=== PATIENT | male | born 1970 | race Caucasian/White ===

== ENCOUNTER 2020-04-02 12:50 | Inpatient (IN) | payer OTHER ==
[2020-04-02] VITALS (11 sets, daily range): BP systolic 119–155; BP diastolic 70–100
[~2020-04-02] VITALS: Ht 185.4 cm; Wt 75.7 kg
--- NOTE | ~2020-04-02 | CON ---
[address] [address] CONSULTATION Name: RITU BARNES Room: [address] IN M.R.#: [id number] Admission: 04/02/20 Attend Phys: Hima Barrett Discharge: Date of : 70 Report #: [id number] THIS REPORT FOR: //name// cc: CELESTE Paulino family physician/PCP CELESTE - Lora family physician/PCP ~ THIS REPORT FOR: //name// CC: CELESTE physician/PCP Nash Rai DO DATE OF SERVICE: 04/03/2020 REASONS FOR CONSULTATION: Hematemesis and melena. REQUESTING PHYSICIAN: Nash Rai DO HISTORY OF PRESENT ILLNESS: This is a 49-year-old male with no significant previous gastrointestinal issues, who presents with hematemesis. The patient reports that for the past day prior to admission, he had dark stool, which was loose. He was in the middle of conference call on the day of admission when he got sick to his stomach and he ran to the bathroom. He vomited blood. This concerned him, so he presented to emergency room. He was admitted for upper gastrointestinal bleed and was placed on Protonix drip. He denies any dysphagia, odynophagia, or gastroesophageal reflux disease. PAST MEDICAL HISTORY: Essentially unremarkable. ALLERGIES: No known drug allergy. MEDICATIONS: Please refer to MAR. SOCIAL HISTORY: The patient is and lives at home. He is employed. He admits to drinking alcohol. FAMILY HISTORY: Significant for colon polyps in the father; otherwise, unremarkable. PHYSICAL EXAMINATION: VITAL SIGNS: Reveal blood pressure 125/91, respirations 15, pulse 80, and temperature 37.1. LUNGS: Clear. CARDIOVASCULAR: Regular. ABDOMEN: Soft, nontender, nondistended. Bowel sounds are positive. LABORATORY DATA: Labs reveal WBC of 6.8, hemoglobin 9.1, platelet is 218; [place] [address] CONSULTATION Name: RITU BARNES Room: [address] IN [facility]#: [id number] Admission: 04/02/20 Attend Phys: Hima Barrett Discharge: Date of : 70 Report #: [id number] sodium is 142, potassium 3.6, BUN is 22, creatinine 0.8, total bilirubin is 1.2 with AST of 30, ALT 39, alkaline phosphatase 32, total protein is 6.2; lipase is 264; INR is within normal limit. COVID test was performed and is undetected. IMAGING: CT of abdomen and pelvis was obtained. This was essentially negative except severe hepatic steatosis and diverticulosis of sigmoid colon. ASSESSMENT AND PLAN: We will consider upper endoscopy to further evaluate the patient's melanotic stools and upper gastrointestinal bleed. We will continue Protonix drip until upper scope is completed. He may also need colonoscopy as he is 49 and has never had done one and his hemoglobin is 9. We will make further recommendation after his upper scope is completed. By: [id number] Weinberg MD /nt
[2020-04-02 13:25] LABS: ABSOLUTE BASOPHILS 0.1 thou/uL (0.0-0.2); ABSOLUTE LYMPHOCYTES 1.3 thou/uL (0.8-5.3); ABSOLUTE MONOCYTES 0.5 thou/uL (0.0-1.2); ABSOLUTE NEUTROPHILS 10.1 thou/uL (1.6-8.1); BASOPHILS 0.6 %; EOSINOPHILS 0.2 %; HEMATOCRIT 36.2 % (42.0-52.0); HEMOGLOBIN 12.5 gm/dL (14.0-18.0); LYMPHOCYTES 10.5 %; MCH 33.6 pg (26.0-34.0); MCHC 34.6 g/dL (28.0-37.0); MCV 97.2 fL (80.0-100.0); MONOCYTES 4.1 %; MPV 8.6 fl. (7.2-11.1); NUCLEATED RBCS 0 /100WBC; PLATELET COUNT* 354 thou/uL (150-400); POLYS 84.6 %; RBC 3.73 mil/uL (4.50-6.00); RDW-CV 13.7 % (10.5-14.5)
[2020-04-02 13:34] LABS: CALCIUM 8.9 mg/dL (8.5-10.1); POTASSIUM 4.2 mmol/L (3.5-5.1)
[2020-04-02 13:35] LABS: APTT 22.2 Seconds (25.0-31.3); PROTIME 10.4 Seconds (9.20-11.50)
[2020-04-02 13:39] LABS: ALBUMIN 4.6 g/dL (3.4-5.0); TOTAL BILIRUBIN 1.7 mg/dL (<0.1-1.0); TOTAL PROTEIN 7.9 g/dL (6.4-8.2)
[2020-04-02 14:23] LABS: URINE BLOOD NEGATIVE (Negative); URINE CLARITY CLEAR; URINE COLOR YELLOW; URINE GLUCOSE-RANDOM NEGATIVE (Negative); URINE KETONES 2+ (Negative); URINE LEUKOCYTES-REFLEX NEGATIVE (Negative); URINE NITRITE-REFLEX NEGATIVE (Negative); URINE PROTEIN TRACE (Negative); URINE SPECIFIC GRAVITY 1.015 (1.005-1.030); URINE UROBILINOGEN 0.2 E.U./dl (0.2-1.0)
[2020-04-02 14:28] LABS: URINE BILIRUBIN 1+ (Negative)
[2020-04-02 14:30] LABS: ICTOTEST (BILI CONFIRMATORY) Positive (Negative)
--- NOTE | 2020-04-02 17:29 | EKG ---
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1970 Requested By: Tylor Gonzalez Order Number: [id number] MD: Akshat Silverio Measurements Intervals [place] Rate: 103 P: 69 AR: 145 QRS: 42 QRSD: 89 T: 185 QT: 328 QTc: 430 Interpretive Statements Sinus tachycardia Probable LVH with secondary repol abnrm No previous ECG available for comparison Electronically Signed On 04-02-2020 17:28:41 CDT by Akshat Silverio [email or web address] <ELECTRONICALLY SIGNED> By: Akshat Silverio MD, [facility] 04/02/20 1728 1319 1319 Akshat Silverio MD, [facility] /EPI
[2020-04-02 17:37] LABS: HEMOGLOBIN 10.1 gm/dL (14.0-18.0)
[2020-04-03] VITALS (12 sets, daily range): BP systolic 119–140; BP diastolic 80–95
[2020-04-03 01:10] LABS: ABSOLUTE LYMPHOCYTES 1.9 thou/uL (0.8-5.3); ABSOLUTE MONOCYTES 0.6 thou/uL (0.0-1.2); ABSOLUTE NEUTROPHILS 4.3 thou/uL (1.6-8.1); BASOPHILS 0.4 %; EOSINOPHILS 0.3 %; HEMATOCRIT 26.2 % (42.0-52.0); HEMOGLOBIN 9.1 gm/dL (14.0-18.0); LYMPHOCYTES 27.3 %; MCH 33.6 pg (26.0-34.0); MCHC 34.8 g/dL (28.0-37.0); MCV 96.6 fL (80.0-100.0); MPV 8.4 fl. (7.2-11.1); NUCLEATED RBCS 0 /100WBC; RBC 2.72 mil/uL (4.50-6.00); RDW-CV 13.8 % (10.5-14.5); WBC 6.8 thou/uL (4.0-11.0)
[2020-04-03 01:13] LABS: PLATELET COUNT* 218 thou/uL (150-400)
[2020-04-03 05:07] LABS: GLYCOHEMOGLOBIN (HGB A1C) 4.9 % (4.8-5.6)
[2020-04-03 06:03] LABS: HEMOGLOBIN 9.1 gm/dL (14.0-18.0)
[2020-04-03 06:25] LABS: ALBUMIN 3.6 g/dL (3.4-5.0); CALCIUM 8.1 mg/dL (8.5-10.1); CREATININE 0.8 mg/dL (0.6-1.3); POTASSIUM 3.6 mmol/L (3.5-5.1); TOTAL BILIRUBIN 1.2 mg/dL (<0.1-1.0); TOTAL PROTEIN 6.2 g/dL (6.4-8.2)
--- NOTE | 2020-04-03 08:46 | NUR ---
PT A&O x4, VSS. PROTONIX AT 8 MG/HR. UP AD JOSE. REPORT GIVEN TO EVAN NYM/S
[2020-04-03 13:04] LABS: HEMOGLOBIN 8.6 gm/dL (14.0-18.0)
--- NOTE | 2020-04-03 17:09 | NUR ---
PATIENT TRANSFERRED UP FROM ICU THIS AM. REPORT RECEIVED FROM EVAN FLORES. PATIENT NPO AND HAD EGD THIS AM WITH DR. LAW. PATIENT RETURNED TO FLOOR EARLY AFTERNOON. NO COMPLAINTS OF PAIN. IVF AND IV PROTONIX INFUSING ORDERED. FULL LIQUID DIET ORDERED AND PATIENT TOLERATING. AM CBC ORDER, POSSIBLE DISCHARGE TOMORROW.
[2020-04-03 18:08] LABS: HEMATOCRIT 25.4 % (42.0-52.0); HEMOGLOBIN 8.8 gm/dL (14.0-18.0)
[2020-04-04 04:51] LABS: ABSOLUTE EOSINOPHILS 0.1 thou/uL (0.0-0.7); ABSOLUTE LYMPHOCYTES 1.9 thou/uL (0.8-5.3); ABSOLUTE MONOCYTES 0.4 thou/uL (0.0-1.2); ABSOLUTE NEUTROPHILS 2.1 thou/uL (1.6-8.1); BASOPHILS 0.9 %; EOSINOPHILS 2.6 %; HEMATOCRIT 24.1 % (42.0-52.0); HEMOGLOBIN 8.4 gm/dL (14.0-18.0); LYMPHOCYTES 42.1 %; MCH 33.8 pg (26.0-34.0); MCHC 34.8 g/dL (28.0-37.0); MCV 97.2 fL (80.0-100.0); MONOCYTES 7.9 %; MPV 8.7 fl. (7.2-11.1); NUCLEATED RBCS 0 /100WBC; PLATELET COUNT* 188 thou/uL (150-400); POLYS 46.5 %; RBC 2.48 mil/uL (4.50-6.00); RDW-CV 13.7 % (10.5-14.5); WBC 4.5 thou/uL (4.0-11.0)
[2020-04-04 05:10] LABS: ALBUMIN 3.1 g/dL (3.4-5.0); CALCIUM 8.5 mg/dL (8.5-10.1); CREATININE 0.8 mg/dL (0.6-1.3); POTASSIUM 3.8 mmol/L (3.5-5.1); TOTAL BILIRUBIN 0.9 mg/dL (<0.1-1.0); TOTAL PROTEIN 5.4 g/dL (6.4-8.2)
--- NOTE | 2020-04-04 05:52 | NUR ---
PATIENT HAS SLEPT WELL THROUGHOUT THE NIGHT. VSS ON RA. MEDICATIONS GIVEN ORDERED AND CHARTED. NO C/O PAIN. PATIENT DID HAVE BOWEL MOVEMENT AND REPORTED THAT THERE WAS NO BLOOD IN HIS STOOL. PATIENT REMAINS ON FULL LIQUID DIET AND TOLERATING WELL. IV IN RIGHT FOREARM- PROTONIX INFUSING @ 20ML/HR. PATIENT INSTRUCTED TO USE CALL LIGHT WHEN NEEDING ASSISTANCE. HOURLY ROUNDS MADE. WILL CONTINUE WITH PLAN OF CARE AND NURSING TO MONITOR.
[2020-04-04 07:40] VITALS: BP 132/87
[2020-04-04] MEDS ORDERED: CARAFATE 11 GM/10 M1 PO (09:14)
[2020-04-04] MEDS ORDERED: PROTONIX40 M1 PO (09:14)
[2020-04-04 11:41] VITALS: BP 132/87
--- NOTE | 2020-04-04 13:55 | NUR ---
PATIENT DENIED ANY BLOODY STOOLS THIS SHIFT. IV PROTONIX GIVEN ORDERED. IV'S DC'D. DR. LAW AWARE OF PT HGB AND OK TO DISCHARGE HOME. PATIENT TOLERATED REG DIET. VERBALIZES UNDERSTANDING OF PAPERWORK AND SCRIPTS. PATIENT TAKEN OUT VIA WHEELCHAIR WITH ALL BELONGINGS.
== END 2020-04-04 13:57 | disposition home or self-care (01) | DRG 378 ==
LOC: M.ERS 12:50 → M.TBA-ER 14:38 → M.ICU 19:33 → M.3W 04-03 08:49
PROVIDERS: Emergency Medicine Emergency Medical Services; Physician Assistant; ADMIT Internal Medicine; ATTEND Internal Medicine
PROC: 0DB98ZX Excision of Duodenum, Via Natural or Artificial Opening Endoscopic, Diagnostic (ICD-10-PCS; principal; 2020-04-03)
PROC: 0W3P8ZZ Control Bleeding in Gastrointestinal Tract, Via Natural or Artificial Opening Endoscopic (ICD-10-PCS; principal; 2020-04-03)
DX: K29.01 Acute gastritis with bleeding (principal); R65.10 Systemic inflammatory response syndrome (SIRS) of non-infectious origin without acute organ dysfunction; D62 Acute posthemorrhagic anemia; K22.10 Ulcer of esophagus without bleeding; K57.11 Diverticulosis of small intestine without perforation or abscess with bleeding; R73.9 Hyperglycemia, unspecified; K76.0 Fatty (change of) liver, not elsewhere classified; K21.0 Gastro-esophageal reflux disease with esophagitis; Z83.79 Family history of other diseases of the digestive system; Z87.891 Personal history of nicotine dependence; Z79.899 Other long term (current) drug therapy; Z03.818 Encounter for observation for suspected exposure to other biological agents ruled out